=== PATIENT | female | born 1980 | race Caucasian/White ===

== ENCOUNTER 2019-04-28 17:53 | Emergency (ER) | payer OTHER ==
[~2019-04-28] VITALS: Ht 160 cm; Wt 56.7 kg
[~2019-04-28 17:53] MED LIST: FLEXERIL PO; TL-FOL 500 CAP1 EACH PO
[2019-04-28] MEDS ORDERED: KEFLEX500 M1 PO (18:08)
[2019-04-28 19:02] VITALS: BP 103/73
== END 2019-04-28 19:04 | disposition home or self-care (01) ==
LOC: M.ERS 17:53
DX: S61.211A Laceration without foreign body of left index finger without damage to nail, initial encounter (principal); Z90.13 Acquired absence of bilateral breasts and nipples; W26.0XXA Contact with knife, initial encounter; Y92.89 Other specified places as the place of occurrence of the external cause; Y93.89 Activity, other specified; Y99.8 Other external cause status